=== PATIENT | female | born 1950 | race Asian ===

== ENCOUNTER → 2016-11-15 | Outpatient (CLI) | payer OTHER | LOC: RAD 08:18 | PROVIDERS: ATTEND Family Medicine | DX: M81.0 Age-related osteoporosis without current pathological fracture (principal); M17.9 Osteoarthritis of knee, unspecified | CPT/HCPCS: 77080 ==

== ENCOUNTER → 2017-06-05 | Outpatient (CLI) | payer OTHER ==
--- NOTE | 2017-06-05 09:21 | WOMENS IMAGING REPORT ---
EXAM DESCRIPTION: BILAT SCREENING MAMMO W/CAD COMPLETED DATE/TIME: 06/05/2017 9:09 am REASON FOR STUDY: ROUTINE SCREENING; Z12.31 Z12.31 ENCNTR SCREEN MAMMOGRAM FOR MALIGNANT NEOPLASM O F MIGUEL COMPARISON: None available TECHNIQUE: Standard craniocaudal and mediolateral oblique views of each breast recorded using digita l acquisition. LIMITATIONS: None. FINDINGS: Findings present which are benign by mammographic criteria. No suspicious masses, calcifi cations or architectural distortion. Pertinent benign findings: Coarse dense benign appearing calcifications medial left breast Read with the assistance of CAD. .[facility] - R2 Cenova Version 1.3 .[facility] - R2 Cenova Version 1.[address] - R2 Cenova Version 2.4 .[facility] [place] Cenova Version 2.4 .[facility] - R2 [employer] Version 9.2 Benign mammographic findings may include one or more of the following: Smooth masses, popcorn/rim/co arse calcifications, asymmetries, post-procedure changes, and lesions with long-standing stability. IMPRESSION: BENIGN MAMMOGRAPHIC FINDINGS. BIRADS 2 BREAST DENSITY: b. There are scattered areas of fibroglandular density. BIRAD: 2 BENIGN FINDING(S) RECOMMENDATION: ROUTINE SCREENING COMMENT: The patient has been notified of the results by letter per MQSA requirements. Additional no tification policies are in place for contacting patient with suspicious or incomplete findings. Quality ID #[id number]: The [employer] recommends an annual screening mammogram for women aged 40 years or over. This facility utilizes a reminder system to ensure that all patients receive reminder letters, and/or direct phone calls for appointments. This includes reminders for routine scr eening mammograms, diagnostic mammograms, or other Breast Imaging Interventions when appropriate. Th is patient will be placed in the appropriate reminder system. The [employer] (ACR) has developed recommendations for screening MRI of the breast s in certain patient populations, to be used in conjunction with mammography. Breast MRI surveillanc e may be appropriate for women with more than 20% lifetime risk of developing breast cancer as deter mined by genetic testing, significant family history of the disease, or history of mantle radiation f or Hodgkins Disease. ACR Practice Guidelines 2008. TECHNICAL DOCUMENTATION: FINDING NUMBER: (1) ASSESSMENT: (1) JOB ID: [id number] [employer]- All Rights Reserved
== END ==
LOC: WI 08:51
PROVIDERS: ATTEND Family Medicine
DX: Z12.31 Encounter for screening mammogram for malignant neoplasm of breast (principal)
CPT/HCPCS: 77067; G0202

== ENCOUNTER 2017-08-26 07:53 | Day surgery (SDC) | payer MEDICARE, OTHER ==
[2017-08-26 10:01] VITALS: BP 127/80
[2017-08-26] MEDS ORDERED: PROPOFOL INJ 200 MG/20 ML VIAL IV ONE (11:36)
--- NOTE | 2017-08-26 13:55 | Operative Report ---
Operative Report DATE OF SURGERY: 08/26/17 Operative Report: The risks, benefits and alternatives of the procedure including risks of bleeding, perforation requiring surgery are explained to the patient in detail and informed consent is obtained. Patient is taken back to the endoscopy suite and placed in a left, lateral decubital position. Timeout was called. Propofol medications administered. A rectal examination is done which did not reveal any masses, tears or fissures. An Olympus videoscope was inserted into the patient's rectum. The scope was then carefully advanced all the way to the cecum. The cecum was identified by the usual anatomical landmarks including the ileocecal valve as well as the appendiceal office. Photodocumentation is obtained. Scope was then sequentially pulled back via the various segments of the colon including the ascending colon, hepatic flexure, transverse colon, splenic flexure, descending colon went to the rectosigmoid portions of the colon. Retroflexion maneuvers performed. The risks benefits and alternatives of the procedure explained to the patient in detail and informed consent is obtained.A GIF Olympus video scope was inserted into the patient's mouth and hypopharynx, the esophagus is identified intubated and insufflated ,the scope was then advanced through the esophagus stomach and duodenum, retroflexion maneuver is done, the esophagus stomach and first and second portions of the duodenum examined PREOPERATIVE DIAGNOSIS: Colorectal cancer screening. Epigastric pain POSTOPERATIVE DIAGNOSIS: Diverticulosis. Internal hemorrhoids. Mild right- sided colon inflammation status post biopsy rule out microscopic colitis. Gastritis status post biopsy rule out Helicobacter pylori OPERATION: Colonoscopy with biopsy. EGD with biopsy SURGEON: ELIZABETH VARGAS ANESTHESIA: LMAC TISSUE REMOVED OR ALTERED: As noted above. COMPLICATIONS: None. ESTIMATED BLOOD LOSS: None. INTRAOPERATIVE FINDINGS: As described above. PROCEDURE: Patient tolerated the procedure well. No immediate postprocedure complications are noted. Patient discharged in good condition. Discharge date 08/26/2017. Discharge diet: Regular. Discharge activity regular. 2-3 week follow-up to discuss findings. Patient is instructed to call the office should there be any further problems or questions. We will wait on pathology. 10 year surveillance colonoscopy biopsies are negative.
== END 2017-08-26 09:46 | disposition home or self-care (01) ==
LOC: END 07:53
PROVIDERS: ATTEND Internal Medicine Gastroenterology
PROC: 0DB68ZX Excision of Stomach, Via Natural or Artificial Opening Endoscopic, Diagnostic (ICD-10-PCS; principal; 2017-08-26 09:00)
PROC: 0DBF8ZX Excision of Right Large Intestine, Via Natural or Artificial Opening Endoscopic, Diagnostic (ICD-10-PCS; 2017-08-26 09:00)
DX: Z12.11 Encounter for screening for malignant neoplasm of colon (principal); K57.30 Diverticulosis of large intestine without perforation or abscess without bleeding; K52.9 Noninfective gastroenteritis and colitis, unspecified; K64.8 Other hemorrhoids; K29.50 Unspecified chronic gastritis without bleeding; E78.5 Hyperlipidemia, unspecified; E11.9 Type 2 diabetes mellitus without complications; Z86.73 Personal history of transient ischemic attack (TIA), and cerebral infarction without residual deficits
CPT/HCPCS: 43239; 45380; 82962; 88342 ×2; 88305 ×2; J2704; 740

== ENCOUNTER 2018-04-29 23:22 | Observation (INO) | payer MEDICARE, MEDICAID ==
--- NOTE | 2018-04-30 00:13 | RADIOLOGY REPORT (SQ) ---
EXAM DESCRIPTION: XR CHEST 1 VIEW COMPLETED DATE/TME: 04/29/2018 23:34 CLINICAL HISTORY: Headache, numbness COMPARISON: 06/13/2015 FINDINGS: Single frontal view of the chest. The cardiomediastinal silhouette has normal size and contour. No consolidation, pneumothorax, or pleural effusion. No displaced rib fractures identified. Upper abdominal soft tissues are unremarkable. IMPRESSION: 1. No acute pulmonary process identified.
--- NOTE | 2018-04-30 00:15 | RADIOLOGY REPORT (SQ) ---
EXAM DESCRIPTION: CT HEAD WITHOUT IV CONTRAST COMPLETED DATE/TME: 04/29/2018 23:34 CLINICAL HISTORY: Headache, numbness COMPARISON: 11/30/2015 TECHNIQUE: Axial CT of the head obtained from the skull apex to the skull base without contrast. FINDINGS: No acute intracranial hemorrhage identified. No mass, mass effect, shift of the midline, abnormal extra-axial fluid collection or CT evidence of acute ischemic change identified. The ventricular system and sulcal spaces are mildly enlarged compatible with mild cerebral atrophy. Scattered areas of hypodensity throughout the supratentorial white matter are nonspecific and may be related to chronic small vessel ischemic change. The visualized paranasal sinuses and the mastoids are clear. No skull fracture identified. Visualized orbits and globes are unremarkable. Atherosclerotic calcification of the intracranial internal carotid arteries. DLP:1150.19 mGy-cm IMPRESSION: 1. No acute intracranial abnormality by CT criteria. This exam was performed according to our departmental dose-optimization program, which includes automated exposure control, adjustment of the mA and/or kV according to patient size and/or use of iterative reconstruction technique.
[2018-04-30] MEDS ORDERED: MORPHINE SULFATE 10 MG/ML INJ IV ONE (00:18)
[2018-04-30] MEDS ORDERED: METOCLOPRAMIDE HCL INJ/PF 10 MG/2 ML SDV IV ONE (00:18)
[2018-04-30 00:54] LABS: INTERNATIONAL RATION (INR) 0.87
[2018-04-30 00:55] LABS: PARTIAL THROMBOPLASTIN TIME 26.4 SEC (23.5-35.8)
[2018-04-30 00:56] LABS: ABSOLUTE BASOPHILS # (AUTO) 0.1 10^3/uL (0.0-0.2); ABSOLUTE EOSINOPHILS # (AUTO) 0.2 10^3/uL (0.0-0.6); ABSOLUTE LYMPHOCYTES (AUTO) 2.6 10^3/uL (0.5-4.7); ABSOLUTE MONOCYTES (AUTO) 0.5 10^3/uL (0.1-1.4); BASOPHILS % (AUTO) 0.8 % (0-2); EOSINOPHILS % (AUTO) 2.6 % (0-6); HEMATOCRIT 39.5 % (36.0-47.0); HEMOGLOBIN 13.5 g/dL (12.0-15.5); LYMPHOCYTES % (AUTO) 41.3 % (13-45); MEAN CORPUSCULAR HEMOGLOBIN 32.6 pg (27.0-33.4); MEAN CORPUSCULAR HGB CONC 34.3 g/dL (32.0-36.0); MEAN CORPUSCULAR VOLUME 95 fl (80-97); MONOCYTES % (AUTO) 7.4 % (3-13); PLATELET COUNT 205 10^3/uL (150-450); RED BLOOD COUNT 4.16 10^6/uL (3.72-5.28); RED CELL DISTRIBUTION WIDTH 12.1 % (11.5-14.0); SEGMENTED NEUTROPHILS % (AUTO) 47.9 % (42-78); TOTAL CELLS COUNTED % (AUTO) 100 %; WHITE BLOOD COUNT 6.3 10^3/uL (4.0-10.5)
[2018-04-30 01:11] LABS: PROTHROMBIN TIME 12.3 SEC (11.4-15.4)
[2018-04-30 01:12] LABS: ALANINE AMINOTRANSFERASE 36 U/L (9-52); ALBUMIN 4.1 g/dL (3.5-5.0); ALKALINE PHOSPHATASE 57 U/L (38-126); ANION GAP 13 (5-19); ASPARTATE AMINO TRANSFERASE 57 U/L (14-36); BILIRUBIN,DIRECT 0.2 mg/dL (0.0-0.4); BILIRUBIN,TOTAL 0.2 mg/dL (0.2-1.3); BLOOD UREA NITROGEN 10 mg/dL (7-20); CALCIUM 9.2 mg/dL (8.4-10.2); CARBON DIOXIDE 26 mmol/L (22-30); CHLORIDE 106 mmol/L (98-107); CREATINE KINASE 66 U/L (30-135); GLUCOSE 172 mg/dL (75-110); POTASSIUM 3.8 mmol/L (3.6-5.0); SODIUM 144.6 mmol/L (137-145); TOTAL PROTEIN 7.2 g/dL (6.3-8.2)
[2018-04-30 01:22] LABS: CREATINE KINASE MB 0.92 ng/mL (<4.55)
[2018-04-30 01:27] LABS: TROPONIN I < 0.012 ng/mL
--- NOTE | 2018-04-30 03:27 | ER Document Report ---
ED General - General Chief Complaint: Headache, arm numbness, vomiting Stated Complaint: NUMBNESS,HEADACHE,VOMITING Time Seen by Provider: 04/30/18 00:01 Notes: Patient is 67-year-old female who presents with complaints of waking up this morning and noticing that she had numbness in her right arm. She denies any weakness in arm at that time. She said later on the day she developed a headache. The headache then went away. The right arm numbness continued. Then her headache returned again later and therefore she came to the ER. She felt a little bit lightheaded and unsteady on her feet. No fevers. No vomiting. She said she had a stroke approximately 2 years ago but does not have any residual effects from that stroke. She is currently on aspirin every day. She does not take any other blood thinning medications. No recent fevers or infections. No other complaints at this time. TRAVEL OUTSIDE OF THE [place] IN LAST 30 DAYS: No - Related Data Allergies/Adverse Reactions: diphenhydramine HCl [From Benadryl] Adverse Reaction (Unknown, Verified 07:51) ondansetron HCl [From Zofran] Adverse Reaction (Unknown, Verified 08/26/17 07:51 ) Past Medical History - Social History Smoking Status: Never Smoker Chew tobacco use (# tins/day): No Frequency of alcohol use: None Drug Abuse: None Family History: Reviewed & Not Pertinent Patient has suicidal ideation: No Patient has homicidal ideation: No - Past Medical History Cardiac Medical History: Reports: Hx Hypercholesterolemia Denies: Hx Coronary Artery Disease, Hx Heart Attack, Hx Hypertension Pulmonary Medical History: Denies: Hx Asthma, Hx Bronchitis, Hx COPD, Hx Pneumonia Neurological Medical History: Denies: Hx Cerebrovascular Accident, Hx Seizures Endocrine Medical History: Reports: Hx Diabetes Mellitus Type 1, Hx Diabetes Mellitus Type 2 Renal/ Medical History: Denies: Hx Peritoneal Dialysis Musculoskeletal Medical History: Reports Hx Arthritis - RIGHT KNEE Psychiatric Medical History: Denies: Hx Depression Past Surgical History: Reports: Hx Appendectomy - Immunizations Hx Diphtheria, Pertussis, Tetanus Vaccination: No - unknown Review of Systems - Review of Systems Notes: My Normal Review Basic REVIEW OF SYSTEMS: CONSTITUTIONAL : Denies fever, chills, or sweats. Denies recent illness. EENT: Denies eye, ear, throat, or mouth pain or symptoms. Denies nasal or sinus congestion. CARDIOVASCULAR: Denies chest pain. RESPIRATORY: Denies cough, cold, or chest congestion. Denies shortness of breath, difficulty breathing, or wheezing. GASTROINTESTINAL: Denies abdominal pain. Denies nausea, vomiting, or diarrhea. Denies constipation. Last BM: MUSCULOSKELETAL: Denies neck or back pain or joint pain or swelling. SKIN: Denies rash or skin lesions. HEMATOLOGIC : Denies easy bruising or bleeding. LYMPHATIC: Denies swollen, enlarged glands. NEUROLOGICAL: Denies altered mental status or loss of consciousness. Has a headache. Denies weakness or paralysis or loss of use of either side. Denies problems with gait or speech. Right arm numbness ALL OTHER SYSTEMS REVIEWED AND NEGATIVE. Physical Exam - Vital signs Vitals: Resp Pulse Ox 15 100 04/30/18 00:12 04/30/18 00:12 - Notes Notes: General Appearance: Well nourished, alert, cooperative, no acute distress, no obvious discomfort. Well-appearing. Vitals: reviewed, See vital signs table. Head: no swelling or tenderness to the head Eyes: PERRL, EOMI, Conjuctiva clear Mouth: No decreasd moisture Throat: No tonsillar inflammation, No airway obstruction, No lymphadenopathy Neck: Supple, no neck tenderness Lungs: No wheezing, No rales, No rhonci, No accessory muscle use, good air exchange bilaterally. Heart: Normal rate, Regular rythm, No murmur, no rub Abdomen: Normal BS, soft, No rigidity, No abdominal tenderness, No guarding, no rebound, no abdominal masses, no organomegaly Extremities: strength 5/5 in all extremities, good pulses in all extremities, no swelling or tenderness in the extremities, no edema. Skin: warm, dry, appropriate color, no rash Neuro: speech clear, oriented x 3, normal affect, responds appropriately to questions. Cranial nerves II through XII are intact. Patient is able feel me touch her right arm she says it is numb. She does have good strength in the right upper extremity. Normal strength and remainder of the other 3 extremities. She does unsteady upon standing on her feet. Course - Re-evaluation Re-evalutation: 04/30/18 03:26 Not exactly sure the cause of the patient's symptoms. Was considered complex migraine. She had a headache associated with her right arm numbness. I treat her headache. She she says her numbness was getting some better. I watch for a while recessed her. Her headache is now completely gone but she says her numbness is coming back a little bit stronger in her right hand and arm. Again when I stand her and have her walk she feels unsteady on her feet. No other neurologic deficits on exam. At this time I think stroke is less likely however I do not feel I can rule out stroke with the studies alone and is concerning that she is having continuous numbness in the right arm despite resolution of her headache. I have spoken with hospitalist who agrees to assess the patient for admission. Dictation of this chart was performed using voice recognition software; therefore, there may be some unintended grammatical errors. - Vital Signs Vital signs: Temp Pulse Resp BP Pulse Ox 68 13 125/70 97 04/30/18 01:15 04/30/18 03:05 04/30/18 03:05 04/30/18 03:05 - Laboratory Result Diagrams: 04/30/18 00:35 04/30/18 00:35 Laboratory results interpreted by me: 04/30/18 00:35 Glucose 172 H AST 57 H Discharge - Discharge Clinical Impression: Right arm numbness Headache Qualifiers: Headache type: unspecified Headache chronicity pattern: episodic headache Intractability: not intractable Qualified Code(s): R51 - Headache Condition: Stable Disposition: ADMITTED OBSERVATION Admitting Provider: Hospitalist Unit Admitted: Telemetry Referrals: NAVJOT ARREAGA MD [Primary Care Provider] - Follow up as needed
[2018-04-30] MEDS ORDERED: NORMAL SALINE 1000 ML 1,000 ML IV PRN (03:52)
[2018-04-30] MEDS ORDERED: MAGNESIUM HYDROXIDE SUSP 30 ML UDCUP PO PRN (03:52)
[2018-04-30] MEDS ORDERED: ACETAMINOPHEN 325 MG TABLET PO PRN (03:52)
[2018-04-30] MEDS ORDERED: CLONIDINE HCL 0.2 MG TABLET PO PRN (03:52)
[2018-04-30] MEDS ORDERED: ONDANSETRON HCL INJ/PF 4 MG/2 ML SDV IV PRN (03:52)
[2018-04-30] MEDS ORDERED: (PENDING PHARMACY ID) (Alendronate Sodium [Fosamax] 70 MG) PO SCH (04:15)
--- NOTE | 2018-04-30 04:28 | PDOC H&P ---
History of Present Illness Admission Date/PCP: 04/30/18 03:35 NAVJOT ARREAGA MD Patient complains of: Headache and right arm numbness History of Present Illness: KATHERIN NASH is a 67 year old female with history of dyslipidemia and diabetes mellitus as well as osteoarthritis who presented to the emergency room with acute onset of right arm numbness after waking up this morning with no weakness. She later developed headache then it went away with her right arm numbness continued. Later during the day her headache recurred when she came to the emergency room. She admitted to having mild dizziness, lightheadedness and ataxia. No paresthesias elsewhere, no dysarthria or dysphagia or tinnitus or vertigo. No urinary or stool incontinence. She had a CVA about a couple of years ago without residual deficits. She is on a baby aspirin daily. No nausea or vomiting or abdominal pain. No chest pain or dyspnea or palpitations. No fever or chills. In the emergency room Blood pressure was 122/99 with a pulse of 66 respiratory rate of 15 pulse oximetry of 97% on room air. Her labs were within normal except for blood glucose of 172 and AST of 57. Noncontrasted head CT scan revealed no acute intracranial abnormalities and chest x-ray showed no acute cardiopulmonary disease. EKG showed normal sinus rhythm with a rate of 68 with T-wave inversion in V1 and flattened T waves in lead III. The patient was given 5 mg IV Reglan and 2 mg IV morphine sulfate for headache. She will be admitted to an observation telemetry bed for further evaluation and monitoring Past Medical History Cardiac Medical History: Reports: Hyperlipidema Denies: Coronary Artery Disease, Myocardial Infarction, Hypertension Pulmonary Medical History: Denies: Asthma, Bronchitis, Chronic Obstructive Pulmonary Disease (COPD), Pneumonia Neurological Medical History: Reports: Ischemic CVA, Other - Right eye blindness Denies: Seizures Endocrine Medical History: Reports: Diabetes Mellitus Type 1, Diabetes Mellitus Type 2 Musculoskeltal Medical History: Reports: Arthritis - RIGHT KNEE Psychiatric Medical History: Denies: Depression Hematology: Denies: Anemia Past Surgical History Past Surgical History: Reports: Appendectomy Social History Smoking Status: Never Smoker Frequency of Alcohol Use: None Hx Recreational Drug Use: No Hx Prescription Drug Abuse: No Family History Family History: DM, Malignancy Parental Family History Reviewed: Yes Children Family History Reviewed: Yes Sibling(s) Family History Reviewed.: Yes Medication/Allergy Home Medications: Acetaminophen [Tylenol 325 mg Tablet] 325 mg PO PRN PRN 06/13/15 Calcium Carbonate/Vitamin D3 [Calcium + Vitamin D Tablet] 600 mg PO DAILY Cholecalciferol (Vitamin D3) [Vitamin D3 5000 unit Capsule] 5,000 units PO DAILY 06/13/15 Ketotifen Fumarate [Refresh] 1 drop OU DAILY 06/13/15 Metformin HCl 500 mg PO Q12 06/13/15 Multivit-Min/Iron/Folic/Lutein [Centrum Silver Women Tablet] 1 tab PO DAILY Pravastatin Sodium [Pravachol] 80 mg PO DAILY 06/13/15 Aspirin [Ecotrin 81 mg EC Tablet] 81 mg PO DAILY #30 tabec 06/14/15 Alendronate Sodium [Fosamax] 70 mg PO .QWEEKLY 08/26/17 Naproxen 250 mg PO BID PRN 08/26/17 Ranitidine HCl 150 mg PO BID PRN 08/26/17 Allergies/Adverse Reactions: diphenhydramine HCl [From Benadryl] Adverse Reaction (Unknown, Verified 07:51) ondansetron HCl [From Zofran] Adverse Reaction (Unknown, Verified 08/26/17 07:51 ) Review of Systems Review of Systems: As per history of present illness. All pertinent systems were reviewed above. Constitutional, HEENT, cardiovascular, respiratory, GI, , musculoskeletal, neuro, psychiatric, endocrine, integumentary and hematologic systems were reviewed and are otherwise negative/unremarkable except for positive findings mentioned above in the HPI. Physical Exam Vital Signs: Temp Pulse Resp BP Pulse Ox 68 15 122/99 H 97 04/30/18 01:15 04/30/18 04:03 04/30/18 04:03 04/30/18 04:03 Intake & Output 04/28/18 04/29/18 04/30/18 06:59 06:59 06:59 Output Total 150 Balance -150 Weight 57.1 kg Exam: Generally: Very pleasant elderly [place] female in no acute distress. She was alert and oriented 3 and cooperative Vital signs-as listed Head - atraumatic, normocephalic. Pupils - equal, round and reactive to light and accommodation. Extraocular movements are intact. No scleral icterus. Oropharynx - moist mucous membranes and tongue. No pharyngeal erythema or exudate. Neck - supple. No JVD. Carotid pulses 2+ bilaterally. No carotid bruits. No palpable thyromegaly or lymphadenopathy. Cardiovascular - regular rate and rhythm. Normal S1 and S2. No murmurs, gallops or rubs. Lungs - clear to auscultation bilaterally. Abdomen - soft and nontender. Positive bowel sounds. No palpable organomegaly or masses. Extremities - no pitting edema, clubbing or cyanosis. Neuro -cranial nerves II through XII intact/grossly non-focal. No facial droop or pronator drift. No gaze preference. Muscle strength were equal 5/5 in both upper and lower extremities with normal sensory exam to light touch throughout. Gait was not tested. Skin - no rashes. Breast, pelvic and rectal - deferred Results Impressions: Chest X-Ray 04/29/18 23:34 IMPRESSION: 1. No acute pulmonary process identified. Head CT 04/29/18 23:34 IMPRESSION: 1. No acute intracranial abnormality by CT criteria. This exam was performed according to our departmental dose-optimization program, which includes automated exposure control, adjustment of the mA and/or kV according to patient size and/or use of iterative reconstruction technique. Assessment & Plan - Diagnosis (1) Right arm numbness Is this a current diagnosis for this admission?: Yes Plan: This is concerning for TIA especially given her history of CVA and associated headache as well as ataxia with her right arm numbness.. The patient will be admitted to an observation medically monitored bed. We will follow neuro checks q.4 hours for 24 hours. The patient will be placed on aspirin. Will obtain a brain MRI without contrast as well as bilateral carotid Doppler and 2D echo with bubble study . A neurology consultation (when available) as well as physical/occupation/speech therapy consults will be obtained in a.m.. The patient will be placed on statin therapy and fasting lipids will be checked. Differential diagnosis would be atypical migraine versus right upper extremity numbness due to cervical radiculopathy. (2) Headache Qualifiers: Headache type: unspecified Headache chronicity pattern: episodic headache Intractability: not intractable Qualified Code(s): R51 - Headache Is this a current diagnosis for this admission?: Yes Plan: She will be placed on as needed Tylenol and Percocet. (3) Hyperlipidemia Is this a current diagnosis for this admission?: Yes Plan: We will continue her on statin therapy (4) Non-insulin dependent type 2 diabetes mellitus Is this a current diagnosis for this admission?: Yes Plan: She will be placed on supplemental coverage with Humalog (5) DVT prophylaxis Is this a current diagnosis for this admission?: Yes Plan: Subcutaneous Lovenox - Plan Summary Plan Summary: The plan of care was discussed in details with the patient. I answered all questions. The patient agreed to proceed with the above-mentioned plan. The patient is presumably full code. This note was created by [employer] software and may contain typo errors that may have not been proofread.
[2018-04-30] MEDS: LANSOPRAZOLE 30 MG TAB.RAP.DR PO SCH (05:38)
[2018-04-30] MEDS: CHOLECALCIFEROL (D3) 1,000 UNIT TABLET PO SCH (09:31)
[2018-04-30] MEDS: MULTIVITAMIN TABLET PO SCH (09:31)
[2018-04-30] MEDS: ENOXAPARIN SODIUM INJ 40 MG/0.4 ML DISP.SYRIN SUBCUT SCH (09:31)
[2018-04-30] MEDS: ASPIRIN 325 MG TABLET, ENT COATED PO SCH (09:31)
[2018-04-30] MEDS: CARBOXYMETHYLCELLULOSE SOD 0.5% 0.4 ML DROPERETTE OU SCH (09:37)
[2018-04-30 09:40] LABS: ANION GAP 14 (5-19); BLOOD UREA NITROGEN 9 mg/dL (7-20); CARBON DIOXIDE 23 mmol/L (22-30); CHLORIDE 106 mmol/L (98-107); GLUCOSE 128 mg/dL (75-110); POTASSIUM 4.3 mmol/L (3.6-5.0)
[2018-04-30] MEDS ORDERED: [UNRECOGNIZED DRUG - OTHER] PO SCH (10:00)
[2018-04-30] MEDS ORDERED: CALCIUM CARBONATE PO SCH (10:00)
[2018-04-30] MEDS ORDERED: VITAMIN D3 PO SCH (10:00)
--- NOTE | 2018-04-30 10:19 | Progress Note ---
Provider Note Provider Note: 67 y.o. F with PMH of dyslipidemia, diabetes mellitus, CVA as well as osteoarthritis Patient seen this morning on rounds. She is awake and oriented x 3. Her speech is clear, she is able to answer questions appropriately, no evidence of unilateral deficits. 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 The patient denies dizziness, nausea or vomiting. Endorses intermittent RUE numbness. Agree with advertising executive's plan of care: 1. TIA: Plan for MRI brain, ECHOcardiogram, and carotid doppler. ASA and statin therapy 2. HLD: continue statin therapy 3. HEADACHE: Tylenol and percocet PRN
--- NOTE | 2018-04-30 11:32 | EKG REPORT ---
SEVERITY:- NORMAL ECG - SINUS RHYTHM : Confirmed by: Mary Gracia MD 30-Apr-2018 11:31:50
--- NOTE | 2018-04-30 15:22 | RADIOLOGY REPORT (SQ) ---
EXAM DESCRIPTION: MRI HEAD WITHOUT COMPLETED DATE/TIME: 04/30/2018 11:36 am REASON FOR STUDY: Right-sided numbness, rule out acute CVA G45.9 TRANSIENT CEREBRAL ISCHEMIC ATTACK , UNSPECIFIED COMPARISON: None. TECHNIQUE: Multiplanar imaging includes non-contrasted T1, T2, FLAIR, and diffusion with ADC map seq uences. Images stored on PACS. LIMITATIONS: None. FINDINGS: ANATOMY: No anomalies. Normal vascular flow voids. Pituitary fossa normal. CSF SPACES: Normal in size and contour. No hemorrhage. CEREBRUM: Sulci and gyri normal in size and contour. Normal white matter signal on FLAIR imaging. No evidence of hemorrhage, mass, or extraaxial fluid collection. POSTERIOR FOSSA: No signal alteration. No hemorrhage. No edema, masses or mass effect. Internal marychuy tory canals, cerebello-pontine angles, mastoids normal. DIFFUSION IMAGING: Negative for acute or sub-acute infarction. ORBITS: No masses. Globes normal. PARANASAL SINUSES: No fluid levels. Mucosa normal. OTHER: No other significant finding. IMPRESSION: NORMAL MRI OF THE BRAIN WITHOUT INTRAVENOUS GADOLINIUM CONTRAST. EVIDENCE OF ACUTE STROKE: NO. TECHNICAL DOCUMENTATION: JOB ID: [id number] [employer]- All Rights Reserved Reading location - IP/workstation name: [email or web address]
[2018-04-30] MEDS ORDERED: GLUCAGON,HUMAN RECOMB 1 MG INJ IM PRN (15:31)
[2018-04-30] MEDS ORDERED: DEXTROSE 50%-WATER 25 GM/50 ML DISP.SYRIN IV PRN ×2 (15:31)
[2018-04-30] MEDS ORDERED: DEXTROSE 40% GEL 15 GM TUBE PO PRN ×2 (15:31)
[2018-04-30] MEDS ORDERED: ATORVASTATIN CALCIUM 10 MG TABLET PO SCH (22:00)
[2018-04-30] MEDS: ATORVASTATIN CALCIUM 20 MG TABLET PO SCH (22:32)
[2018-05-01] MEDS: LANSOPRAZOLE 30 MG TAB.RAP.DR PO SCH (05:49)
[2018-05-01] MEDS: CHOLECALCIFEROL (D3) 1,000 UNIT TABLET PO SCH (09:59)
[2018-05-01] MEDS: ASPIRIN 325 MG TABLET, ENT COATED PO SCH (10:00)
[2018-05-01] MEDS: MULTIVITAMIN TABLET PO SCH (10:00)
[2018-05-01] MEDS: ENOXAPARIN SODIUM INJ 40 MG/0.4 ML DISP.SYRIN SUBCUT SCH (10:00)
[2018-05-01] MEDS: CARBOXYMETHYLCELLULOSE SOD 0.5% 0.4 ML DROPERETTE OU SCH (10:59)
[2018-05-01] MEDS: INSULIN LISPRO 100 UNIT/ML 3 ML VIAL SUBCUT PRN ×2 (13:30→18:54)
--- NOTE | 2018-05-01 17:55 | PDOC PROGRESS REPORT ---
Subjective Progress Note for:: 05/01/18 Subjective:: 67 y.o. F who presented 04/30/2018 with stroke-like symptoms. Son states the patient experienced a self-limiting episode of confusion, RUE numbness, and blurry vision. The patient was seen this morning on rounds. She was able to ambulate to and from the restroom without difficulty, no evidence of ataxia. The patient is alert and oriented, her speech is clear and she is able to answer all questions appropriately. Upon assessment, equal strength in all extremities, no parasthesia, good hand/eye coordination, no evidence of facial droop or pronator drift. 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 No visual field deficits in L eye. Reason For Visit: TIA Physical Exam Vital Signs: Temp Pulse Resp BP Pulse Ox 97.8 F 95 18 118/79 97 05/01/18 15:16 05/01/18 14:00 05/01/18 15:16 05/01/18 15:16 05/01/18 12:00 Intake & Output 04/30/18 05/01/18 05/02/18 06:59 06:59 06:59 Intake Total 0 1237 118 Output Total 150 Balance -150 1237 118 Weight 59.1 kg 59 kg General appearance: PRESENT: no acute distress, well-developed, well-nourished Head exam: PRESENT: atraumatic, normocephalic Eye exam: PRESENT: conjunctiva pink, EOMI, PERRLA. ABSENT: scleral icterus Ear exam: PRESENT: normal external ear exam Mouth exam: PRESENT: moist, tongue midline Neck exam: ABSENT: carotid bruit, JVD, lymphadenopathy, thyromegaly Respiratory exam: PRESENT: clear to auscultation rica, symmetrical, unlabored. ABSENT: rales, rhonchi, wheezes Cardiovascular exam: PRESENT: RRR, +S1, +S2. ABSENT: diastolic murmur, rubs, systolic murmur Pulses: PRESENT: normal radial pulses, normal dorsalis pedis pul Vascular exam: PRESENT: normal capillary refill GI/Abdominal exam: PRESENT: normal bowel sounds, soft. ABSENT: distended, guarding, mass, organolmegaly, rebound, tenderness Rectal exam: PRESENT: deferred Extremities exam: PRESENT: full ROM. ABSENT: calf tenderness, clubbing, pedal edema Musculoskeletal exam: PRESENT: ambulatory, full ROM Neurological exam: PRESENT: alert, awake, oriented to person, oriented to place , oriented to time, oriented to situation. ABSENT: motor sensory deficit Psychiatric exam: PRESENT: appropriate affect, normal mood Skin exam: PRESENT: dry, intact, warm Results Laboratory Results: 04/30/18 08:11 Impressions: Chest X-Ray 04/29/18 23:34 IMPRESSION: 1. No acute pulmonary process identified. Head CT 04/29/18 23:34 IMPRESSION: 1. No acute intracranial abnormality by CT criteria. This exam was performed according to our departmental dose-optimization program, which includes automated exposure control, adjustment of the mA and/or kV according to patient size and/or use of iterative reconstruction technique. Head MRI 04/30/18 08:00 IMPRESSION: NORMAL MRI OF THE BRAIN WITHOUT INTRAVENOUS GADOLINIUM CONTRAST. EVIDENCE OF ACUTE STROKE: NO. Status: Imported from PACS Assessment & Plan - Diagnosis (1) TIA (transient ischemic attack) Is this a current diagnosis for this admission?: Yes Plan: Self-limiting episode of confusion, blurry vision and RUE weakness/numbness Patient states she has a history of CVA and she was treated at [facility] but there are no records Head CT normal MRI Brain normal ECHOcardiogram and carotid doppler pending ASA and statin therapy IV hydralazine for SBP>170 (2) Hyperlipidemia Is this a current diagnosis for this admission?: Yes Plan: History of HLD Continue home dose statin (3) Diabetes Qualifiers: Diabetes mellitus type: type 2 Diabetes mellitus complication status: without complication Is this a current diagnosis for this admission?: Yes Plan: History of diabetes Sally Aguilar sliding scale insulin - Time Time Spent with patient: 15-24 minutes Medications reviewed and adjusted accordingly: Yes Anticipated discharge: Home Within: within 24 hours - Inpatient Certification Based on my medical assessment, after consideration of the patient's comorbidities, presenting symptoms, or acuity I expect that the services needed warrant INPATIENT care.: Yes I certify that my determination is in accordance with my understanding of Medicare's requirements for reasonable and necessary INPATIENT services [42 CFR 412.3e].: Yes Medical Necessity: Risk of Complication if Not Cared For in Hospital - Plan Summary Plan Summary: ECHOCARDIOGRAM AND CAROTID DOPPLER STILL PENDING. MRI NORMAL - NO NEW EVIDENCE OF CVA
--- NOTE | 2018-05-01 18:49 | XCELERA REPORT ---
[address] [address] Transthoracic Echocardiogram Report Name: KATHERIN [facility] Age: 67 yrs Gender: Female : 1950 Patient Status: Inpatient Patient Location: [address] [place] [address] Study Date: 05/01/2018 04:48 PM Procedure: A complete two-dimensional transthoracic echocardiogram was performed (2D, M-mode, spectral and color flow Doppler). The study was technically difficult with many images being suboptimal in quality. Reason For Study: CVA Ordering Physician: MYNOR ALEXANDER Performed By: Mia Tripathi Interpretation Summary The left ventricular ejection fraction is normal. There is mild concentric left ventricular hypertrophy. The left ventricle is grossly normal size. Doppler measurements suggest pseudonormalized left ventricular relaxation, which is associated with grade II/IV or mild to moderate diastolic dysfunction Wall motion cannot be accurately commented on, but no definite regional wall motion abnormalities noted. The right ventricle is grossly normal size. The right ventricular systolic function is normal. The right atrium is normal in size The left atrial size is normal. There is no mitral regurgitation noted. There is no mitral valve stenosis. There is no aortic valve stenosis No aortic regurgitation is present. There is no tricuspid stenosis. No tricuspid regurgitation. The aortic root is not well visualized but is probably normal size. The inferior vena cava was not well visualized There is no pericardial effusion. MMode/2D Measurements & Calculations RVDd: 2.4 cm LVIDd: 5.0 cm FS: 38.4 % Ao root diam: 2.1 cm IVSd: 0.76 cm LVIDs: 3.1 cm EDV(Teich): 117.8 ml Ao root area: 3.5 cm2 LVPWd: 0.78 cm ESV(Teich): 37.2 ml EF(Teich): 68.4 % Doppler Measurements & Calculations MV E max rigo: MV dec slope: Ao V2 max: LV V1 max P.2 cm/sec 126.5 cm/sec 4.4 mmHg MV A max rigo: 265.1 cm/sec2 Ao max PG: LV V1 max: 87.6 cm/sec MV dec time: 0.23 sec 6.4 mmHg 105.1 cm/sec MV E/A: 0.70 PA V2 max: 99.4 cm/sec PA max P.0 mmHg Left Ventricle The left ventricle is grossly normal size. There is mild concentric left ventricular hypertrophy. The left ventricular ejection fraction is normal. Doppler measurements suggest pseudonormalized left ventricular relaxation, which is associated with grade II/IV or mild to moderate diastolic dysfunction. Wall motion cannot be accurately commented on, but no definite regional wall motion abnormalities noted. Right Ventricle The right ventricle is grossly normal size. The right ventricular systolic function is normal. Atria The right atrium is normal in size. The left atrial size is normal. Interarterial septum not well visualized and not well dopplered. Cannot comment on ASD/PFO presence. Mitral Valve The mitral valve is grossly normal. There is no mitral valve stenosis. There is no mitral regurgitation noted. Aortic Valve The aortic valve is not well visualized secondary to technical limitations. There is no aortic valve stenosis. No aortic regurgitation is present. Tricuspid Valve The tricuspid valve is not well visualized secondary to technical limitations. There is no tricuspid stenosis. No tricuspid regurgitation. Pulmonic Valve The pulmonic valve is not well visualized. Great Vessels The aortic root is not well visualized but is probably normal size. The inferior vena cava was not well visualized. Effusions There is no pericardial effusion. Incidental Findings Consider SOHAM if clinically indicated. May consider mobile cardiac telemetry monitoring (MCT) for ruling out transient AFIB. : MYNOR ALEXANDER Shyamal
[2018-05-01] MEDS: ATORVASTATIN CALCIUM 20 MG TABLET PO SCH (21:51)
[2018-05-02] MEDS: LANSOPRAZOLE 30 MG TAB.RAP.DR PO SCH (05:54)
--- NOTE | 2018-05-02 07:56 | RADIOLOGY REPORT (SQ) ---
EXAM DESCRIPTION: CAROTID DOPPLER COMPLETED DATE/TIME: 05/01/2018 6:00 pm REASON FOR STUDY: TIA COMPARISON: 06/14/2015. TECHNIQUE: Grayscale ultrasound, Doppler velocity and spectra, and color Doppler images acquired of the extra-cranial carotid and vertebral arteries. Images stored on PACS. LIMITATIONS: None. FINDINGS: RIGHT CAROTID CCA Velocities: Within normal limits. ICA Velocities Peak systolic 0.66 m/s. End diastolic 0.25 m/s. Proximal ICA/CCA peak systolic ratio 0.86. Spectra normal. No significant plaque. LEFT CAROTID CCA Velocities: Within normal limits. ICA Velocities Peak systolic 0.93 m/s. End diastolic 0.36 m/s. Proximal ICA/CCA peak systolic ratio 1.28. Spectra normal. No significant plaque. VERTEBRAL ARTERIES: Antegrade flow. Normal waveforms. SUBCLAVIAN ARTERIES: No finding. OTHER: No other significant finding. IMPRESSION: NO HEMODYNAMICALLY SIGNIFICANT STENOSIS. COMMENT: Quality ID #[id number]: Velocity criteria are extrapolated from the diameter data as defined by t he Society of Radiologists in Ultrasound Consensus Conference. Radiology 2003: 229; 340-346. TECHNICAL DOCUMENTATION: JOB ID: [id number] [employer] All Rights Reserved Reading location - IP/workstation name: [email or web address]
[2018-05-02] MEDS: CHOLECALCIFEROL (D3) 1,000 UNIT TABLET PO SCH (09:46)
[2018-05-02] MEDS: ASPIRIN 325 MG TABLET, ENT COATED PO SCH (09:47)
[2018-05-02] MEDS: MULTIVITAMIN TABLET PO SCH (09:47)
[2018-05-02] MEDS: ENOXAPARIN SODIUM INJ 40 MG/0.4 ML DISP.SYRIN SUBCUT SCH (09:47)
[2018-05-02] MEDS ORDERED: CARBOXYMETHYLCELLULOSE SOD 0.5% 0.4 ML DROPERETTE OU SCH (10:00)
[2018-05-02] MEDS ORDERED: CALCIUM CARBONATE 250 MG/VITAMIN D3 125 UNIT TABLET PO SCH (10:00)
[2018-05-02 11:05] VITALS: BP 112/68
--- NOTE | 2018-05-12 12:57 | PDOC DISCHARGE SUMMARY ---
General - Admit/Disc Date/PCP Admission Date/Primary Care Provider: 04/30/18 03:35 NAVJOT ARREAGA MD Discharge Date: 05/02/18 - Discharge Diagnosis (1) TIA (transient ischemic attack) Is this a current diagnosis for this admission?: Yes (2) Hyperlipidemia Is this a current diagnosis for this admission?: Yes (3) Diabetes Is this a current diagnosis for this admission?: Yes - Additional Information Resuscitation Status: Full Code Discharge Diet: Cardiac Discharge Activity: Activity As Tolerated Home Medications: Metformin HCl 500 mg PO Q12 06/13/15 Multivit-Min/Iron/Folic/Lutein [Centrum Silver Women Tablet] 1 tab PO DAILY Pravastatin Sodium [Pravachol] 80 mg PO DAILY 06/13/15 Aspirin [Ecotrin 81 mg EC Tablet] 81 mg PO DAILY #30 tabec 06/14/15 Alendronate Sodium [Fosamax] 70 mg PO .QWEEKLY 08/26/17 Naproxen 250 mg PO BID PRN 08/26/17 Aspirin [Ecotrin 325 mg EC Tablet] 325 mg PO DAILY tabec 05/02/18 History of Present Illness History of Present Illness: PER DR. ALEXANDER: KATHERIN [facility] is a 67 year old female with history of dyslipidemia and diabetes mellitus as well as osteoarthritis who presented to the emergency room with acute onset of right arm numbness after waking up this morning with no weakness. She later developed headache then it went away with her right arm numbness continued. Later during the day her headache recurred when she came to the emergency room. She admitted to having mild dizziness, lightheadedness and ataxia. No paresthesias elsewhere, no dysarthria or dysphagia or tinnitus or vertigo. No urinary or stool incontinence. She had a CVA about a couple of years ago without residual deficits. She is on a baby aspirin daily. No nausea or vomiting or abdominal pain. No chest pain or dyspnea or palpitations. No fever or chills. In the emergency room Blood pressure was 122/99 with a pulse of 66 respiratory rate of 15 pulse oximetry of 97% on room air. Her labs were within normal except for blood glucose of 172 and AST of 57. Noncontrasted head CT scan revealed no acute intracranial abnormalities and chest x-ray showed no acute cardiopulmonary disease. EKG showed normal sinus rhythm with a rate of 68 with T-wave inversion in V1 and flattened T waves in lead III. The patient was given 5 mg IV Reglan and 2 mg IV morphine sulfate for headache. She will be admitted to an observation telemetry bed for further evaluation and monitoring Hospital Course Hospital Course: 67 y.o. F who presented 04/30/2018 with stroke-like symptoms. Son states the patient experienced a self-limiting episode of confusion, RUE numbness, and blurry vision. The patient states she has a history of CVA and she was treated [facility] but, after extensive review of her medical records, there is no indication that the patient has experienced a CVA. She Has been admitted for TIA workups in the past. It is possible that the patient confused the term 'mini -stroke' with an actual stroke. While the patient was at [facility] during this admission, her TIA workup was completely benign. Head CT, MRI brain, and carotid doppler were all normal. ECHOcardiogram revealed mild concentric LVH and grade II diastolic dysfunction, but was otherwise benign. After 2 days in the hospital, the patient was deemed safe for discharge. The patient was counseled regarding lifestyle modification ( BP control, glucose control, cholesterol monitoring). The patient was advised to return to the hospital if she experiences stroke like symptoms again. She stated full understanding. For further information regarding the patient's hospitalization, please refer to the EMR. Physical Exam Vital Signs: Temp Pulse Resp BP Pulse Ox 97.8 F 72 17 112/68 99 05/02/18 11:03 05/02/18 11:03 05/02/18 11:03 05/02/18 11:03 05/02/18 11:03 Results Laboratory Results: 04/30/18 08:11 Impressions: Chest X-Ray 04/29/18 23:34 IMPRESSION: 1. No acute pulmonary process identified. Head CT 04/29/18 23:34 IMPRESSION: 1. No acute intracranial abnormality by CT criteria. This exam was performed according to our departmental dose-optimization program, which includes automated exposure control, adjustment of the mA and/or kV according to patient size and/or use of iterative reconstruction technique. Head MRI 04/30/18 08:00 IMPRESSION: NORMAL MRI OF THE BRAIN WITHOUT INTRAVENOUS GADOLINIUM CONTRAST. EVIDENCE OF ACUTE STROKE: NO. Carotid Doppler Study 05/01/18 00:00 IMPRESSION: NO HEMODYNAMICALLY SIGNIFICANT STENOSIS. Status: Imported from PACS Qualifiers - * PATIENT BEING DISCHARGED WITH ANY OF THE FOLLOWING DIAGNOSIS: No Plan Discharge Plan: DISCHARGE HOME. RETURN TO EMERGENCY DEPARTMENT FOR STROKE LIKE SYMPTOMS Time Spent: Less than 30 Minutes
== END 2018-05-02 11:43 | disposition home or self-care (01) ==
LOC: ER 23:22 → EH 04-30 03:35 → 3W 04-30 05:50
PROVIDERS: ADMIT Family Medicine; ATTEND Family Medicine
DX: G45.9 Transient cerebral ischemic attack, unspecified (principal); R20.0 Anesthesia of skin; E78.5 Hyperlipidemia, unspecified; E11.9 Type 2 diabetes mellitus without complications; R51 Headache; H40.9 Unspecified glaucoma; H26.9 Unspecified cataract; H54.61 Unqualified visual loss, right eye, normal vision left eye; R27.0 Ataxia, unspecified; M13.861 Other specified arthritis, right knee; Z86.73 Personal history of transient ischemic attack (TIA), and cerebral infarction without residual deficits; Z90.49 Acquired absence of other specified parts of digestive tract; Z79.82 Long term (current) use of aspirin; Z79.899 Other long term (current) drug therapy; Z79.84 Long term (current) use of oral hypoglycemic drugs
CPT/HCPCS: 93005; 99285; 96361; 96374; 96375; 36415; 82553; 82962 ×3; 82550; 85025; 85610; 85730; 80048; 80053; 84484; 93306; 93880; 70551; 71045; 70450; 93010; 97116; 97163; 97167; G0378 ×3; A9270 ×15; J2765; J2270; J1650 ×3; J3490 ×5; J7030; G8978; G8979; G8980; G8987; G8988; G8989; J1815

== ENCOUNTER 2018-05-29 11:14 | Day surgery (SDC) | payer MEDICAID, MEDICARE ==
[~2018-05-29 11:14] MED LIST: DIPHENHYDRAMINE HCL 50 MG/ML VIAL ONE; EPINEPHRINE INJ 1 MG/10 ML DISP.SYRIN ONE; FLUMAZENIL INJ 0.5 MG/5 ML VIAL ONE; GLUCAGON,HUMAN RECOMB 1 MG INJ ONE; MIDAZOLAM 2 MG/2 ML INJ ONE; NALOXONE HCL INJ/PF 0.4 MG/1 ML SDV ONE; ONDANSETRON HCL INJ/PF 4 MG/2 ML SDV ONE
[2018-05-29] MEDS: FENTANYL CITRATE INJ/PF 100 MCG/2 ML AMPUL ONE ×3 (12:02→12:04)
--- NOTE | 2018-05-29 12:48 | Operative Report ---
Operative Report DATE OF SURGERY: 05/29/18 Operative Report: The risks benefits and alternatives of the procedure explained to the patient in detail and informed consent is obtained.A GIF Olympus video scope was inserted into the patient's mouth and hypopharynx, the esophagus is identified intubated and insufflated, the scope was then advanced through the esophagus stomach and duodenum ,retroflexion maneuver is done ,the esophagus stomach and first and second portions of the duodenum examined PREOPERATIVE DIAGNOSIS: Dysphagia POSTOPERATIVE DIAGNOSIS: Schatzki's ring status post breakage. Hiatal hernia. Gastritis status post biopsy rule out Helicobacter pylori OPERATION: EGD with biopsy SURGEON: ELIZABETH VARGAS ANESTHESIA: Moderate Sedation - 2 mg of Versed, 25 mcg of fentanyl. Conscious sedation monitoring time 30 minutes. TISSUE REMOVED OR ALTERED: As noted above. COMPLICATIONS: None. ESTIMATED BLOOD LOSS: None. INTRAOPERATIVE FINDINGS: As noted above. PROCEDURE: Patient tolerated the procedure well. No immediate postprocedure complications are noted. Patient discharged in good condition. Discharge date 05/29/2018 Discharge diet: Regular. Discharge activity: Regular. 2-3 week follow-up to discuss findings. Patient is instructed call the office or proceed to the emergency room should there be any further problems or questions. Wait on the pathology.
[2018-05-29 13:35] VITALS: BP 106/55
== END 2018-05-29 13:15 | disposition home or self-care (01) ==
LOC: END 11:14
PROVIDERS: ATTEND Internal Medicine Gastroenterology
DX: K22.2 Esophageal obstruction (principal); K44.9 Diaphragmatic hernia without obstruction or gangrene; K29.50 Unspecified chronic gastritis without bleeding; E11.9 Type 2 diabetes mellitus without complications; E78.5 Hyperlipidemia, unspecified; E78.00 Pure hypercholesterolemia, unspecified; Z86.73 Personal history of transient ischemic attack (TIA), and cerebral infarction without residual deficits; Z79.899 Other long term (current) drug therapy; Z79.84 Long term (current) use of oral hypoglycemic drugs; Z79.1 Long term (current) use of non-steroidal anti-inflammatories (NSAID)
CPT/HCPCS: 43239; 82962; 88342 ×2; 88305 ×2; J2250; J3010; J0171; J1200; J1610; J2310; J2405; J3490

== ENCOUNTER → 2018-06-02 | Outpatient (CLI) | payer MEDICAID, MEDICARE ==
--- NOTE | 2018-06-02 13:17 | WOMENS IMAGING REPORT ---
EXAM DESCRIPTION: U/S THYROID/ST TIS HEAD NECK COMPLETED DATE/TIME: 06/02/2018 1:03 pm REASON FOR STUDY: US THYROID/ R13.12 R13.12 DYSPHAGIA, OROPHARYNGEAL PHASE COMPARISON: None. TECHNIQUE: Dynamic and static tucker-scale images acquired of the thyroid gland. Selected additional c olor/power Doppler images recorded. All images stored to PACS. LIMITATIONS: None. FINDINGS: RIGHT LOBE: The right lobe of the thyroid gland measures 3.5 x 1.4 x 1.4 cm, normal size. Homogeneous echotexture. No cystic or solid masses. LEFT LOBE: The left lobe of the thyroid gland measures 4.2 x 1.3 x 1.6 cm, normal size. Very small 2 mm cyst. Homogeneous echotexture. ISTHMUS: The isthmus measures 2.8 mm in AP diameter, upper limits of normal size. Homogeneous echot exture. No cystic or solid masses. OTHER: No other significant finding. IMPRESSION: 1. Very small subcentimeter cyst in the left lobe of the thyroid gland. TECHNICAL DOCUMENTATION: JOB ID: [id number] [employer]- All Rights Reserved Reading location - IP/workstation name: [email or web address]
== END ==
LOC: WI 11:05
PROVIDERS: ATTEND Family Medicine
DX: R13.12 Dysphagia, oropharyngeal phase (principal); E04.1 Nontoxic single thyroid nodule
CPT/HCPCS: 76536

== ENCOUNTER → 2019-07-24 | Outpatient (CLI) | payer MEDICARE ==
--- NOTE | 2019-07-24 13:22 | WOMENS IMAGING REPORT ---
EXAM DESCRIPTION: BONE DENSITY HIP/SPINE COMPLETED DATE/TIME: 07/24/2019 1:09 pm REASON FOR STUDY: M81.0 AGE-RELATED OSTEOPOROSIS WITHOUT CURRENT PATHOLOGICAL FRACTURE M81.0 AGE-RE LATED OSTEOPOROSIS W/O CURRENT PATHOLOGICAL FRAC Z12.31 ENCNTR SCREEN MAMMOGRAM FOR MALIGNANT NEOPLA [facility] COMPARISON: 2016 TECHNIQUE: Dual-Energy X-ray Absorptiometry (DEXA) of the AP Spine and Hip. LIMITATIONS: None. FINDINGS: LUMBAR SPINE: The bone mineral density (BMD) measured from L1-L4 in the AP projection correlates with a T-score of -2.0, which is osteopenia as defined by the World Health Organization. BMD Change vs Baseline: N/A HIP: The bone mineral density (BMD) measured in the left hip correlates with a T-score of -2.8, which is o steoporosis as defined by the World Health Organization. BMD Change vs Baseline: N/A 10 year Fracture Risk Assessment: Major Osteoporotic Fracture: Not available. Hip Fracture: Not available. IMPRESSION: 1. LUMBAR SPINE WHO CLASSIFICATION: OSTEOPENIA. 2. HIP WHO CLASSIFICATION: OSTEOPOROSIS. OVERALL ASSESSMENT: WHO CLASSIFICATION: OSTEOPOROSIS. COMMENT: The World Health Organization defines low BMD as follows: T-score: Normal: Greater than -1.0 Osteopenia: Between -1.0 and -2.5 Osteoporosis: Less than -2.5 without fractures Established osteoporosis: Less than -2.5 with fractures In general, you may wish to consider: Diagnosis Treatment Follow-up DEXA Normal BMD Prevention 2-3 years Osteopenia Prevention/Therapy 1-2 years Osteoporosis Therapy Yearly TECHNICAL DOCUMENTATION: JOB ID: [id number] [employer]- All Rights Reserved Reading location - IP/workstation name: [email or web address]
--- NOTE | 2019-07-24 13:43 | WOMENS IMAGING REPORT ---
EXAM DESCRIPTION: BILAT SCREENING MAMMO W/CAD COMPLETED DATE/TIME: 07/24/2019 1:09 pm REASON FOR STUDY: Z12.31 ENCOUNTER FOR SCREENING MAMMOGRAM FOR MALIGNANT NEOPLASM OF BREAST M81.0 A GE-RELATED OSTEOPOROSIS W/O CURRENT PATHOLOGICAL FRAC Z12.31 ENCNTR SCREEN MAMMOGRAM FOR MALIGNANT N EOPLASM OF MIGUEL COMPARISON: 2016 EXAM PARAMETERS: Standard craniocaudal and mediolateral oblique views of each breast recorded using digital acquisition. Read with the assistance of CAD. .[facility] - R2 [employer]der Version 9.2 LIMITATIONS: None. FINDINGS: No suspicious masses, suspicious calcifications or architectural distortion. No areas of c oncern. IMPRESSION: Negative MAMMOGRAM. BIRADS 1 BREAST DENSITY: b. There are scattered areas of fibroglandular density. BIRAD: ASSESSMENT: 1 NEGATIVE RECOMMENDATION: ROUTINE SCREENING COMMENT: The patient has been notified of the results by letter per MQSA requirements. Additional no tification policies are in place for contacting patient with suspicious or incomplete findings. Quality ID #225: The [employer] recommends an annual screening mammogram for women aged 40 years or over. This facility utilizes a reminder system to ensure that all patients receive reminder letters, and/or direct phone calls for appointments. This includes reminders for routine scr eening mammograms, diagnostic mammograms, or other Breast Imaging Interventions when appropriate. Th is patient will be placed in the appropriate reminder system. TECHNICAL DOCUMENTATION: FINDING NUMBER: (1) ASSESSMENT: (1) JOB ID: [id number] [employer]- All Rights Reserved Reading location - IP/workstation name: [email or web address]
== END ==
LOC: WI 12:33
PROVIDERS: ATTEND Family Medicine
DX: Z12.31 Encounter for screening mammogram for malignant neoplasm of breast (principal); M81.0 Age-related osteoporosis without current pathological fracture
CPT/HCPCS: 77067; 77080